=== PATIENT | female | born 1980 | race Caucasian/White ===

== ENCOUNTER 2024-04-02 15:22 | Outpatient (REF) | payer BC, SELFPAY ==
--- NOTE | 2024-04-02 15:22 | PAPFT_PTH ---
PATIENT: Zeynep Ram LOC: [facility] U#:[id number] AGE/SX: 43/F ROOM: RE04/02/[address]: Aline Guevara MD : 1980 BED: DIS: 04/02/2024 SPEC #: [id number] RECD: 04/03/24 13:08 STATUS: SHAUNNAJuana REPravin #: [id number] LAURO: 04/02/24 15:[address]: Aline Guevara DEPT: [facility] Cytology RECD BY: Jacqueline Juan ENTERED: 04/03/24 13:08 SP TYPE: PAPFT OTHR DR: Unknown,Unknown Tissues: 1 - CX/ENDOCX FOR PAP SMEARS Procedures: PAP THIN PREP/[facility] Screening HPV DNA PROBE Comments: [id number] (HPV 16 & 18/45)
== END 2024-04-02 15:23 | disposition home or self-care (01) ==
LOC: LBN 15:22
PROVIDERS: Visit Provider Obstetrics & Gynecology
DX: Z12.4 Encounter for screening for malignant neoplasm of cervix (principal)
CPT/HCPCS: 88142; 87624

== ENCOUNTER 2024-04-09 01:12 | Outpatient (CLI) | payer BC, SELFPAY ==
--- NOTE | 2024-04-09 09:45 | DI.US_ITS ---
Exam(s) MG MAMMO DIAGNOSTIC BI US BREAST LT LIMITED EXAM: MG MAMMO DIAGNOSTIC BI CLINICAL HISTORY: lt breast lump,strong family history of breast ca,z80.3,n63.20. COMPARISON: US US BREAST LT LIMITED from 04/09/2024 TECHNIQUE: Craniocaudal and mediolateral oblique Full Field Digital Mammography views of both breast s with Computer Aided Diagnosis followed by Tomosynthesis and left breast ultrasound. FINDINGS: Mammography/Tomosynthesis: Masses/Architectural Distortion: None seen. Microcalcifications: No suspicious pleomorphic-type are seen. Skin Thickening/Nipple Retraction: None. Left breast US: Echotexture: Normal appearance of the glandular tissue. Shadowing: No suspicious foci. Cyst: None. Solid lesions: None seen. Ductal dilation: None. Skin: The area of palpable abnormality corresponds to a 3 x 2 x 2 millimeter fluid collection within the skin. No generalized skin edema or thickening. IMPRESSION: 1. No evidence of malignancy is noted. 2. Unless there is more urgent need, follow-up screening mammography is recommended, as per [place] [employer] guidelines. BI-RADS Category 2 - Benign Findings Breast Density - Category C - Heterogeneously dense Breast density category C or D implies that the patient has dense breast tissue. Dense breast tissue is very common and is not abnormal but dense breast tissue can make it harder to find cancer on a ma mmogram. Also, dense breast tissue may increase their breast cancer risk. This information about the result of the mammogram report was provided to the patient to raise their awareness. Use this report when you speak with the patient about their risks for breast cancer, which includes their family hist ory. At that time, you may recommend for more screening tests (Ultrasound or MRI) as they might be us eful based on their risk. A negative radiographic report should not delay biopsy if a dominant or clinically suspicious mass is present. Up to ten percent of cancers are not identified on mammography. A negative report may reinforce clinical impression. Adenosis and dense breasts may obscure an underlying neoplasm. False positive reports average 6 to 10%. Patient will receive a letter notifying them of these results.
== END 2024-04-09 01:32 ==
LOC: DI 01:13
PROVIDERS: Visit Provider Obstetrics & Gynecology
DX: Z12.31 Encounter for screening mammogram for malignant neoplasm of breast (principal); R92.8 Other abnormal and inconclusive findings on diagnostic imaging of breast
CPT/HCPCS: 76642; 77062; 77066; G0279

== ENCOUNTER 2025-04-08 15:05 | Outpatient (REF) | payer BC, SELFPAY ==
--- NOTE | 2025-04-08 14:30 | PAPFT_PTH ---
PATIENT: Zeynep Ram LOC: [facility] U#:[id number] AGE/SX: 44/F ROOM: RE04/08/[address]: Aline Guevara MD : 1980 BED: DIS: 04/08/2025 SPEC #: [id number] RECD: 04/08/25 17:22 STATUS: DAMARI REPravin #: [id number] LAURO: 04/08/25 14:[address]: Aline Guevara DEPT: [facility] Cytology RECD BY: Jacqueline Juan ENTERED: 04/08/25 17:22 SP TYPE: PAPFT OTHR DR: Unknown,Unknown Tissues: 1 - CX/ENDOCX FOR PAP SMEARS Procedures: PAP THIN PREP/[facility] Screening HPV DNA PROBE Comments: [id number] (HPV 16 & 18/45)
== END 2025-04-08 15:06 | disposition home or self-care (01) ==
LOC: LBN 15:05
PROVIDERS: Visit Provider Obstetrics & Gynecology
DX: Z12.4 Encounter for screening for malignant neoplasm of cervix (principal)
CPT/HCPCS: 88142; 87624

== ENCOUNTER → 2025-04-19 02:21 | Outpatient (CLI) | payer BC, SELFPAY ==
--- NOTE | 2025-04-19 08:15 | DI.MAMMO_ITS ---
Exam(s) MAMMO SCREENING EXAM: MAMMO SCREENING CLINICAL HISTORY: screening,z12.31 TECHNIQUE: Bilateral full field digital CC and MLO mammographic images were obtained with 3D tomosynthesis and utilizing computer aided detection (CAD). COMPARISON: Comparison is made with prior examinations. FINDINGS: Masses/Architectural Distortion: No suspicious masses or areas of architectural distortion are present. Microcalcifications: No suspicious pleomorphic-type are seen. Skin Thickening/Nipple Retraction: None. IMPRESSION: 1. No significant interval change with no specific features of malignancy noted. 2. Unless there is more urgent need, screening mammography is recommended, as per [place] [employer] guidelines. BI-RADS Category 1 - Negative Breast Density - Category C - The breast are heterogeneously dense, which may obscure small masses. Breast density Category C or D implies that the patient has dense breast tissue. Dense breast tissue can make it harder to find cancer on a mammogram. Dense breast tissue is also associated with an increased risk of breast cancer. This information about the result of the mammogram report was provided to the patient to raise their awareness. Use this report when you speak with the patient about their risks for breast cancer, which includes their family history. At that time, you may recommend additional screening tests (Ultrasound or MRI) as these tests may add significant information. A negative radiographic report should not delay biopsy if a dominant or clinically suspicious mass is present. Up to ten percent of cancers are not identified on mammography. A negative report may reinforce clinical impression. Adenosis and dense breasts may obscure an underlying neoplasm. False positive reports average 6 to 10%. Patient will receive a letter notifying them of these results.
== END ==
PROVIDERS: Visit Provider Obstetrics & Gynecology
DX: Z12.31 Encounter for screening mammogram for malignant neoplasm of breast (principal)
CPT/HCPCS: 77063; 77067